=== PATIENT | female | born 1965 | race Caucasian/White ===

== ENCOUNTER 2023-01-02 17:23 | Emergency (ER) | payer BC ==
[2023-01-02] MEDS ORDERED: BUFFERED LIDOCAINE 10 ML SYRINGE SUBQ STA (17:32)
[2023-01-02 17:34] VITALS: BP 150/90; O2SAT 100
--- NOTE | 2023-01-02 18:10 | ED Physician Documentation ---
PD HPI UPPER EXT INJURY - Stated complaint Stated Complaint: RT FINGER LAC - Chief complaint Chief Complaint: Laceration - History obtained from History obtained from: Patient (Right-handed woman who is up-to-date on tetanus (2019) cut herself on the right index finger with an immersion firearms expert at home just prior to arrival.) - History of Present Illness Location: Right - Additonal information Additional information: She has a 2 cm laceration on the pulp of the index finger and then a laceration on the dorsum going across the nail perpendicular to the longitude of the digit towards the proximal part of the nail. No distal neurovascular compromise. PD PAST MEDICAL HISTORY - Allergies Allergies/Adverse Reactions: Allergies Allergy/AdvReac Type Severity Reaction Status Date / Time No Known Drug Allergies Allergy Verified 01/02/23 17:26 Results - Vitals Vitals: Vital Signs - 24 hr 01/02/23 17:26 Temperature 36.6 C Heart Rate 63 Respiratory 16 Rate Blood Pressure 150/90 H O2 Saturation 100 Oxygen O2 Source Room air Procedures - Laceration (location) R 2nd finger Length in cm: 4 Wound type: Other (There were really 2 lacerations, one 2 cm laceration on the pulp and one 2 cm laceration on the dorsum that goes through the nail horizontally.) Anesthesia: Lidocaine 1%, With bicarb (Digital block with excellent anesthesia) Wound preparation: Irrigated copiously NS Skin layer closure: Nylon, Size #-0 - enter number (4-0), Sutures - enter # (4 sutures on the dorsum including 2 through the nail with some adjunctive Dermabond, 5 sutures on the pulp.) Other: Patient tolerated well, No complications Departure - Departure Disposition: 01 Home, Self Care Clinical Impression: Finger laceration Qualifiers: Encounter type: initial encounter Finger: index finger Damage to nail status: with damage Foreign body presence: without foreign body Laterality: right Qualified Code(s): S61.310A - Laceration without foreign body of right index finger with damage to nail, initial encounter Condition: Good Record reviewed to determine appropriate education?: Yes Instructions: ED Laceration Hand Comments: Come back for any signs of infection which would include: Redness, swelling, drainage, increased pain, or fevers. You can wash it soap and water. Keep it covered and moist with bacitracin ointment which is available over the counter; avoid neosporin. Follow-up with your physician in 14 days for suture removal.
== END 2023-01-02 18:27 | disposition home or self-care (01) ==
LOC: ED 17:23
DX: S61.310A Laceration without foreign body of right index finger with damage to nail, initial encounter (principal); W29.0XXA Contact with powered kitchen appliance, initial encounter
CPT/HCPCS: 12002; 99282